=== PATIENT | male | born 1995 | race Caucasian/White ===

== ENCOUNTER 2021-12-21 17:16 | Emergency (ER) | payer MEDICAID ==
[~2021-12-21] VITALS: Ht 188 cm; Wt 85.0 kg
[2021-12-21 17:31] VITALS: BP 151/102
== END 2021-12-21 21:03 | disposition left against medical advice (07) ==
LOC: ER 17:16
DX: Z53.21 Procedure and treatment not carried out due to patient leaving prior to being seen by health care provider (principal)